=== PATIENT | female | born 1955 | race Caucasian/White ===

== ENCOUNTER 2023-07-05 09:31 | Emergency (ER) | payer BC ==
--- NOTE | 2023-07-05 10:41 | ED Physician Documentation ---
PD HPI HEADACHE - Stated complaint Stated Complaint: STIFF NECK,ARAUJO - Chief complaint Chief Complaint: Back Pain - History obtained from History obtained from: Patient - History of Present Illness Timing - onset: How many days ago (4) Timing - onset during: Light activity (she is not aware of particular injury. Had stayed sitting in bed reading longer than usual night before. Otherwise onset next day of stiffness and pain left soterior neck that has gradually worsened to significant pain today. Is most painful left side, with movment and to the touch. Stiff right now.) Timing - duration: Days (4) Timing - details: Gradual onset, Still present Worst headache ever?: Worst headache ever? Quality: Aching, Stabbing Associated symptoms: Stiff neck. No: Fever, Nausea, Vomiting, Vision changes Improved by: Other (not moving head). No: Rest, Dark room Worsened by: Moving, Other (also worse with palpation left posterior neck and side, to occipital scalp.). No: Light, Noise Contributing factors: No: Recent illness Similar symptoms before: Has not had sx before Recently seen: Not recently seen Review of Systems Constitutional: denies: Fever, Chills Eyes: denies: Loss of vision, Decreased vision, Photophobia Nose: denies: Rhinorrhea / runny nose, Congestion Throat: denies: Sore throat Respiratory: denies: Cough GI: denies: Nausea, Vomiting Neurologic: reports: Headache. denies: Focal weakness, Numbness, Confused, Altered mental status, Head injury, LOC PD PAST MEDICAL HISTORY - Past Medical History Past Medical History: No Neuro: None - Past Surgical History Past Surgical History: Yes Ortho: Arthroscopic surgery /[employer]: Tubal ligation - Present Medications Home Medications: Ambulatory Orders Medication Instructions Recorded Confirmed HYDROcod/ACETAM 5/325 [[place] 5/325] 1 ea PO Q6H PRN #12 tablet 07/05/23 Meloxicam [Mobic] 7.5 mg PO BID 10 Days #20 tablet 07/05/23 tiZANidine [Zanaflex] 4 mg PO Q8H PRN #15 tablet 07/05/23 valACYclovir [Valtrex] 1,000 mg PO TID #15 tablet 07/05/23 - Allergies Allergies/Adverse Reactions: Allergies Allergy/AdvReac Type Severity Reaction Status Date / Time aspirin Allergy Rash Verified 07/05/23 09:45 - Social History Does the pt smoke?: No Smoking Status: Never smoker Does the pt drink ETOH?: Yes Does the pt have substance abuse?: No - Immunizations Immunizations are current?: Yes PD ED PE NORMAL - Vitals Vital signs reviewed: Yes - General General: Alert and oriented X 3, Well developed/nourished, Other (appears in pain with guarding of neck movement. Alert and conversant. ) - Neck Neck: No bony TTP (is not tender in bony middle per se. Has significant tenderness left trapezius muscle and at the occipital nerve area of ridge. Tender to light and moderate touch as well. No rash nor sores. Left neck with some deeper msucle tenderness. 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2 Neut # (Auto) 8.1 H Lymph # (Auto) 0.8 L [place] # (Auto) 0.9 Eos # (Auto) 0.1 Baso # (Auto) 0.0 Absolute Nucleated RBC 0.00 Nucleated RBC % 0.0 Sodium 137 Potassium 4.2 Chloride 103 Carbon Dioxide 28 Anion Gap 6.0 BUN 17 Creatinine 0.7 Estimated GFR (MDRD) 83 L Glucose 184 H Calcium 10.0 Total Bilirubin 0.8 AST 14 ALT 15 Alkaline Phosphatase 72 C-Reactive Protein 4.7 H Total Protein 6.9 Albumin 4.4 Globulin 2.5 Albumin/Globulin Ratio 1.8 Lipase 20 Procalcitonin Immunoas < 0.05 - Rads (name of study) head CT Relevant Findings:: Prelim report reviewed, EMP independent interpretation of test (no acute process) cervical CT Relevant Findings:: Prelim report reviewed (spondylolysis diffusely, with arthritic facet areas. Central stenosis moderately. No fractures. ), EMP independent interpretation of test angio neck and head Relevant Findings:: Prelim report reviewed, Discussed with rads (no dissections, aneurysms, vascular process. ) PD Medical Decision Making - ED course Complexity details: reviewed results, re-evaluated patient (the patiet does not have URI symptoms, fever, nor does not seem meningitic, encephalitic. I do not seem indication for LP. Can get CT head and neck. These were okay, except arthritic changes. She is feeling better with IV meds.), considered differential (gradual onset and now severe left posterior neck pain to occipital area and to side of neck. Some muscular stiff right neck developed too. No focal neuro symptoms. Consider muscular most likely, but also shingles pre rash, and serious would be dissection, masses, aneurysms, etc. ), d/w patient Reviewed Lab Results: labs with normal WBC and negative procalcitonin. Minimally elevated CRP 5.4 Clinically does not seem infectious/meningitic. Defer LP. CTs showing arthritic changes incervical spine. No dissection, aneurysms, vascular stenoses that are more than 50%. Departure - Departure Disposition: 01 Home, Self Care Clinical Impression: Neck pain on left side, Headache Condition: Stable Record reviewed to determine appropriate education?: Yes Instructions: ED Neck Pain No Trauma Follow-Up: [facility] [Provider Group] [facility] [place] [facility] [Provider Group] [facility] [Provider Group] Prescriptions: Meloxicam [Mobic] 7.5 mg PO BID 10 Days #20 tablet HYDROcod/ACETAM 5/325 [[place] 5/325] 1 ea PO Q6H PRN #12 tablet PRN Reason: Pain valACYclovir [Valtrex] 1,000 mg PO TID #15 tablet tiZANidine [Zanaflex] 4 mg PO Q8H PRN #15 tablet PRN Reason: Spasms Comments: The CT scans of your head and neck along with the vascular angiography did not show any obvious acute abnormalities. There is some arthritis changes certainly within the neck and that may have gotten flared up with some pain there. Otherwise it does seem muscular with some tenderness on the outside and pain with movement. With some tenderness to touch as well, would also consider a nerve type inflammation such as shingles without a rash. I would treat this with a combination of heat stretching massage etc. topically and with medications of anti-inflammatory muscle relaxant and adding an pain medicine. I would also add Valacyclovir antiviral as components of this have the character of shingles type outbreak even though there is no rash. I wrote prescriptions for the valacyclovir as well as an anti-inflammatory called meloxicam. You can also add tizanidine muscle relaxant if needed for stiffness or spasm. To that add Tylenol 500 to 650 mg 4 times daily regularly. If needed for worse pain I did write a very small supply of an opiate medicine called hydrocodone. I sent these to your preferred pharmacy [facility] in [place]. I wrote the name of a few clinics in [place] for follow-up as well. I am prescribing a short course of narcotic pain medication for you. These are potentially dangerous and addictive medications that should be used carefully. These medications may constipate you. Take an htlu-tfv-[id number] stool softener such as docusate twice daily with plenty of water while taking these medications. If you go 24 hours without a bowel movement, take [id number]-edi-[id number] MiraLAX, per package instructions. Do not drink or drive while taking these medications. If you received narcotic or sedating medications while in the emergency department do not drive for 24 hours. Store this medication in a safe, secure place and out of reach of children. It is a violation of federal law to give or sell this medication to another person or to use in a manner other than prescribed. The ED will not refill narcotic prescriptions, including prescriptions lost or stolen. You can dispose of unwanted medications at the [facility]'s office or at several pharmacies such as [facility] Discharge Date/Time: 07/05/23 15:56
[2023-07-05 10:59] LABS: BASOPHILS % (AUTO) 0.2 %; EOSINOPHILS # (AUTO) 0.1 10^3/uL (0.0-0.7); EOSINOPHILS % (AUTO) 0.5 %; HCT - HEMATOCRIT 45.6 % (37.0-47.0); HGB - HEMOGLOBIN 15.1 g/dL (12.0-16.0); LYMPHOCYTES # (AUTO) 0.8 10^3/uL (1.5-3.5); LYMPHOCYTES % (AUTO) 8.3 %; MEAN CORPUSCULAR HEMOGLOBIN 30.9 pg (27.0-31.0); MEAN CORPUSCULAR HGB CONC 33.1 g/dL (32.0-36.0); MEAN CORPUSCULAR VOLUME 93.3 fL (81.0-99.0); MEAN PLATELET VOLUME 9.2 fL (7.9-10.8); MONOCYTES # (AUTO) 0.9 10^3/uL (0.0-1.0); MONOCYTES % (AUTO) 9.4 %; NEUTROPHILS # (AUTO) 8.1 10^3/uL (1.5-6.6); NEUTROPHILS % (AUTO) 81.3 %; PLT - PLATELET COUNT 243 10^3/uL (130-450); RED BLOOD COUNT 4.89 10^6/uL (4.20-5.40); RED CELL DISTRIBUTION WIDTH 12.2 % (12.0-15.0)
[2023-07-05 11:14] LABS: ALBUMIN 4.4 g/dL (3.2-5.5); ALBUMIN/GLOBULIN RATIO 1.8 (1.0-2.2); ALKALINE PHOSPHATASE 72 IU/L (42-121); ALT ALANINE AMINOTRANSFERASE 15 IU/L (10-60); AST ASPARTATE AMINOTRANSFERASE 14 IU/L (10-42); BILIRUBIN,TOTAL 0.8 mg/dL (0.2-1.0); BUN - BLOOD UREA NITROGEN 17 mg/dL (6-20); CARBON DIOXIDE - CO2 28 mmol/L (21-32); CHLORIDE 103 mmol/L (101-111); CREATININE 0.7 mg/dL (0.6-1.3); CRP - C-REACTIVE PROTEIN 4.7 mg/dL (<0.5); GFR - MDRD 83 (>89); GLUCOSE 184 mg/dL (74-104); LIPASE 20 U/L (11-82); POTASSIUM 4.2 mmol/L (3.5-4.5); SODIUM 137 mmol/L (135-145); TOTAL PROTEIN 6.9 g/dL (6.4-8.9)
[2023-07-05 11:24] LABS: PROCALCITONIN < 0.05 ng/mL (<0.5)
[2023-07-05] MEDS ORDERED: TRIAMCINOLONE 40 MG/ML VIAL MC STA (11:33)
[2023-07-05] MEDS ORDERED: KETOROLAC 15 MG/ML VIAL IVP STA (11:33)
[2023-07-05] MEDS ORDERED: HYDROmorphone 0.5 MG/0.5 ML SYRINGE IVP STA (11:33)
[2023-07-05] MEDS ORDERED: LIDOCAINE 1%-EPI 1:100000 20 ML MDV SUBQ STA (11:34)
--- NOTE | 2023-07-05 13:11 | CT Report ---
PROCEDURE: HEAD WO INDICATIONS: progressive posterior ARAUJO 4 days TECHNIQUE: Noncontrast 4.5 mm thick angled axial sections acquired from the foramen magnum to the vertex. For r adiation dose reduction, the following was used: automated exposure control, adjustment of mA and/or kV according to patient size. COMPARISON: None. FINDINGS: Image quality: Excellent. CSF spaces: Basal cisterns are patent. No extra-axial fluid collections. Ventricles are normal in size and shape. Brain: No midline shift. No intracranial masses or hemorrhage. Nicole-white matter interface is norm al. Skull and face: Calvarium and visualized facial bones are intact, without suspicious lesions. Sinuses: Visualized sinuses and mastoids are clear. IMPRESSION: No acute intracranial pathology. Reviewed by: Branden Merritt MD on 07/05/2023 1:09 PM PST Approved by: Branden Merritt MD on 07/05/2023 1:09 PM [facility] Station ID: [id number]
--- NOTE | 2023-07-05 13:13 | CT Report ---
PROCEDURE: CERVICAL SPINE WO INDICATIONS: left neck/head pain for 4 days TECHNIQUE: Noncontrast 3 mm thick sections acquired from the skull base to the T4 level. Sagittal and coronal r eformats were then constructed. For radiation dose reduction, the following was used: automated exp osure control, adjustment of mA and/or kV according to patient size. COMPARISON: None. FINDINGS: Image quality: Excellent. Bones: No fractures or dislocations. Visualized superior ribs are intact. Severe cervical spondylo sis. Chronic disc height loss, posterior disc osteophyte complex, and uncovertebral joint hypertrophy at C4-C5 through C6-C7 with bilateral foraminal narrowing at these levels. Multilevel facet arthropa thy, as well. There is a degree of canal stenosis at C5-C6. Soft tissues: Prevertebral soft tissues are normal in thickness. No paravertebral hematomas. No ap ical pneumothoraces. IMPRESSION: 1. No acute cervical fracture or dislocation. 2. Severe cervical spondylosis. Findings include canal stenosis and multilevel foraminal stenosis. Reviewed by: Branden Merritt MD on 07/05/2023 1:12 PM PST Approved by: Branden Merritt MD on 07/05/2023 1:12 PM PST Station ID: [id number]
[2023-07-05] MEDS ORDERED: iohexoL-300 100 ML VIAL IVP ONE (13:36)
--- NOTE | 2023-07-05 14:21 | CT Report ---
PROCEDURE: CT Angio Head/Neck INDICATIONS: posterior neck/head pain left side mostly TECHNIQUE: After the administration of intravenous contrast, 1 mm thick sections acquired from the aortic arch t hrough the [place] of [employer]. 3-dimensional xyavqis-ebgzjhbch-khlcpcdbmk (MIP) and/or volume renderin g reformats were acquired of the central intracranial vasculature and neck separately. For radiation dose reduction, the following was used: automated exposure control, adjustment of mA and/or kV acco rding to patient size. COMPARISON: CT of the head dated 07/05/2023 FINDINGS: Image quality: Diagnostic. HEAD CT: CSF Spaces: Basal cisterns are patent. No extra-axial fluid collections. Ventricles are normal in size and shape. Brain: The brain is within normal limits for age and scanning technique. Skull and face: Calvarium and visualized facial bones appear intact, without suspicious lesions. Sinuses: Visualized sinuses and mastoids are clear. HEAD CT ANGIOGRAPHY: Anterior circulation: Atheromatous calcifications are present bilaterally within the cavernous portio ns of the internal carotid arteries. There is less than 50% resultant stenosis. Flow within the paire d anterior cerebral arteries is normal and symmetric. The flow within the middle cerebral arteries i s normal and symmetric. The anterior communicating artery is seen. No aneurysms are seen. Posterior circulation: Visualized portions of the vertebral arteries demonstrate normal caliber, and join to form a normal appearing basilar artery. Flow within the posterior cerebral arteries is norm al and symmetric. No aneurysms are seen. NECK CT ANGIOGRAPHY: Carotid system: The great vessels demonstrate a conventional anatomy as they arise from the aortic a rch. The origins of the common carotid arteries appear patent. The common carotid arteries demonstr ate normal caliber and courses. Right bifurcation is widely patent. Atheromatous calcifications are p resent at the left bifurcation with a mild resultant stenosis at the carotid bulb. The internal carot id arteries demonstrate normal calibers and courses. Posterior circulation: The origins of the vertebral arteries both appear widely patent. The more martínez perior extracranial portions of both vertebral arteries also demonstrate normal courses and calibers. They join to form a normal appearing basilar artery. Soft tissues: Visualized neck soft tissues demonstrate no suspicious abnormalities. Bones: No suspicious bony lesions. Moderate degenerative changes are present throughout the cervical spine. Visualized cervical spine appears normally aligned. IMPRESSION: 1. Less than 50% stenosis of the bilateral intracranial carotid arteries. 2. No other hemodynamically significant stenosis, aneurysm, or occlusion of the cervical and intracra nial arteries. 3. Moderate to severe degenerative change throughout the cervical spine. The estimate of stenosis included in the report of the imaging study was calculated using the NASCET method Reviewed by: Rosa Moore MD on 07/05/2023 2:20 PM PST Approved by: Rosa Moore MD on 07/05/2023 2:20 PM PST Station ID: [id number]
[2023-07-05 15:20] VITALS: BP 130/68; O2SAT 97
== END 2023-07-05 15:56 | disposition home or self-care (01) ==
LOC: ED 09:31
DX: M54.2 Cervicalgia (principal); R51.9 Headache, unspecified; Z79.899 Other long term (current) drug therapy
CPT/HCPCS: 36415; 64450; 80053; 83690; 84145; 85025; 86140; 99285

== ENCOUNTER 2023-12-14 10:18 | Outpatient (CLI) | payer BC ==
--- NOTE | 2023-12-15 09:48 | Mammography Report ---
BILATERAL DIGITAL SCREENING MAMMOGRAM 3D/2D: 12/14/2023 CLINICAL: Routine screening. Comparison is made to exams dated: 04/17/2018 mammogram, 04/19/2017 mammogram, 11/14/2015 mammogram, mammogram, 10/21/2009 mammogram, and 07/15/2008 mammogram. There are scattered areas of fibroglandular density in both breasts (category b / 25%-50% glandular t issue). No significant masses, calcifications, or other findings are seen in either breast. There has been no significant interval change. IMPRESSION: NEGATIVE There is no mammographic evidence of malignancy. A 1 year screening mammogram is recommended. Based on the Tyrer Cuzick model (a risk assessment model) the patient's lifetime risk is 4.1% and her 10 year risk is 2.4%. According to the ACR, ACS, and NCCN guidelines, an annual breast MRI exam demetrio g with mammogram is recommended if the patient's lifetime risk is 20% or greater. This exam was interpreted at Station ID: [id number]. NOTE: For mammograms, a report in lay terms will be sent to the patient. Approximately 15% of breast malignancies will not be visualized mammographically. In the management of a palpable breast mass, a negative mammogram must not discourage biopsy of a clinically suspicious lesion. Electronically Signed By: Jaylin Hernandes M.D., Ph.D. /roberth:12/14/2023 12:42:37 letter sent: No_Letter ACR BI-RADS Category 1: Negative 3341F PARENCHYMAL PATTERN: (A) - The breast(s) demonstrate(s) scattered fibroglandular densities. BI-RADS CATEGORY: (1) - 1 RECOMMENDATION: (ANNUAL) - Recommend routine annual screening mammography. [id number] 1 year screening LATERALITY: (B)
== END 2023-12-14 10:19 | disposition home or self-care (01) ==
LOC: DI.N 10:18
PROVIDERS: ATTEND Physician Assistant
DX: Z12.31 Encounter for screening mammogram for malignant neoplasm of breast (principal); R92.323 Mammographic fibroglandular density, bilateral breasts

== ENCOUNTER 2023-12-14 10:20 | Outpatient (CLI) | payer BC ==
--- NOTE | 2023-12-14 12:56 | XRAY Report ---
PROCEDURE: Foot 3+V BL INDICATIONS: PAIN IN HEELS TECHNIQUE: 6 views of the bilateral feet were acquired. COMPARISON: None. FINDINGS: Bones: No fractures or dislocations. Mild hallux angulation of the first MTP joint with medial buni on formation bilaterally. Mild first MTP and interphalangeal joint degeneration bilaterally. Plantar calcaneal enthesophyte on the right and posterior calcaneal enthesophytes the left. No suspicious bon y lesions. Soft tissues: No tibiotalar joint effusion. Achilles tendon appears normal. IMPRESSION: 1.No acute osseous abnormalities. 2.Plantar calcaneal enthesophyte on the right and posterior calcaneal enthesophyte on the left. 3.Mild hallux valgus configuration the first MTP joints bilaterally with medial bunion formation. 4.Mild osteoarthritic changes. Reviewed by: Toni Smith MD on 12/14/2023 12:54 PM PDT Approved by: Toni Smith MD on 12/14/2023 12:54 PM PDT Station ID: [id number]
== END 2023-12-14 10:21 | disposition home or self-care (01) ==
LOC: DI.N 10:20
PROVIDERS: ATTEND Physician Assistant
DX: M77.32 Calcaneal spur, left foot (principal); M77.31 Calcaneal spur, right foot; M20.12 Hallux valgus (acquired), left foot; M20.11 Hallux valgus (acquired), right foot; M21.612 Bunion of left foot; M21.611 Bunion of right foot; M19.072 Primary osteoarthritis, left ankle and foot; M19.071 Primary osteoarthritis, right ankle and foot

== ENCOUNTER 2024-01-27 08:36 | Outpatient (CLI) | payer BC ==
--- NOTE | 2024-01-27 21:30 | DEXA Report ---
PROCEDURE: Dexa Spine and/or Hip INDICATIONS: MENOPAUSAL TECHNIQUE: Dual energy x-ray absorptiometry (DXA) was performed on a [employer] System. Regions measur ed are the AP Spine, femoral neck, and if needed forearm. COMPARISON: None FINDINGS: Lumbar Spine: Bone Mineral Density: 1.274 g/cm/cm,T score: 0.8. Left Femoral Neck: Bone Mineral Density: 0.914 g/cm/cm, T score: -0.9. Left Hip: Bone Mineral Density: 1.059 g/cm/cm,T score: 0.4. (T score greater or equal to -1.0: NORMAL) (T score from -1.1 to -2.4: OSTEOPENIA) (T score less than or equal to -2.5 to: OSTEOPOROSIS) Impression: By WHO criteria, this patient has normal bone density. Patients with diagnosis of osteoporosis or osteopenia should have regular bone mineral density assess ment. For those eligible for Medicare, routine testing is allowed once every 2 years. Testing frequ ency can be increased for patients who have rapidly progressing disease or for those who are receivin g medical therapy to restore bone mass. Reviewed by: Branden Merritt MD on 01/27/2024 9:28 PM PDT Approved by: Branden Merritt MD on 01/27/2024 9:28 PM PDT Station ID: [id number]
== END 2024-01-27 08:37 | disposition home or self-care (01) ==
LOC: DI 08:36
PROVIDERS: ATTEND Physician Assistant
DX: N95.8 Other specified menopausal and perimenopausal disorders (principal)